=== PATIENT | female | born 1985 | race Caucasian/White ===

== ENCOUNTER 2021-12-16 04:11 | Inpatient (IN) ==
[2021-12-16] MEDS ORDERED: OXYTOCIN 30 UNITS/500 ML BAG IV PRN ×2 (05:21→14:06)
[2021-12-16 06:02] LABS: Hematocrit (blood only) 33.4 % (37-47); Hemoglobin 10.5 g/dL (12.0-16.0); Mean Corpuscular Volume 76.3 fL (80-100); Mean Platelet Volume 10.3 fL (7.4-10.4); Platelet Count 197 K/uL (130-400); RDW Coefficient of Variation 14.6 % (11.5-14.5); RDW Standard Deviation 41.1 fL (36.4-46.3); Red Blood Count 4.38 M/uL (4.2-5.4); White Blood Count 10.39 K/uL (4.8-10.8)
[2021-12-16 06:04] LABS: Mean Corpuscular Hgb Conc 31.4 g/dL (32-36)
--- NOTE | 2021-12-16 07:29 | Labor Progress Brief Note ---
Date of Service December 16, 2021 Subjective Tolerating contractions well, discussing when to get epidural Assessment & Plan (1) SROM (spontaneous rupture of membranes): Plan: SROM followed by onset of labor Patient desires to ambulate intermittently Considering epidural No current need for augmentation; observe, anticipate . Admission and Anticipated Discharge Date Admission Date: December 16, 2021 Physical Exam Genitourinary: /-1 LOF clear FHT Cat 1 [place] Q2-4 Results & Data ([facility]) Vital Signs (Past 12 Hours) Vital Signs Temp Pulse Resp BP 12/16/21 07:05 98.4 F 20 12/16/21 07:02 92 H 138/87 12/16/21 04:29 98.1 F 85 18 134/77 Coding Level of Care Code None Diagnoses SROM (spontaneous rupture of membranes)
[2021-12-16] MEDS ORDERED: SODIUM CHLORIDE 0.9% INJ 10 ML VIAL ONE (07:46)
[2021-12-16] MEDS ORDERED: ePHEDrine sulfate 50 MG/ML AMP ONE (07:46)
[2021-12-16] MEDS ORDERED: BUPIVACAINE 0.25% 30 ML VIAL ONE (07:47)
[2021-12-16] MEDS ORDERED: fentaNYL citrate 100 MCG/2 ML VIAL ONE (07:47)
[2021-12-16] MEDS ORDERED: fentaNYL 2MCG/ML ROPIVACAINE 1.25MG/ML 100 ML BAG EPI ONE (07:48)
[2021-12-16] MEDS: LACTATED RINGER'S 1,000 ML IV PRN ×2 (07:58→08:53)
[2021-12-16] MEDS ORDERED: NALOXONE HCL 0.4 MG/1 ML VIAL/CARP IV PRN (08:16)
[2021-12-16] MEDS ORDERED: NALBUPHINE HCL INJ 10 MG/ML AMP IV PRN (08:16)
[2021-12-16] MEDS ORDERED: ePHEDrine sulfate 50 MG/ML AMP IV PRN (08:16)
[2021-12-16] MEDS ORDERED: diphenhydrAMINE 50 MG/ML VIAL IV PRN (08:16)
[2021-12-16] MEDS ORDERED: ONDANSETRON INJ 2 MG/ML 2 ML VIAL IV PRN (08:16)
[2021-12-16] MEDS ORDERED: fentaNYL 2MCG/ML ROPIVACAINE 1.25MG/ML 100 ML BAG EPI PRN (08:16)
[2021-12-16] MEDS ORDERED: NALOXONE HCL 1 MG in SODIUM CHLORIDE 0.9% 1000ML 1,000 ML IV PRN (08:16)
--- NOTE | 2021-12-16 08:22 | Anesthesiology Consultation ---
Date of Service December 16, 2021 Assessment & Plan Chart Review Chart Review: Patient NOT seen in Pre Admission Testing and Acceptable Risk for Labor Epidural Consults Requested none ASA ASA2 Proposed Anesthesia Anesthesia Type: Labor Epidural and CSE Risk / Benefits Reviewed With: PT / POA / Parent / Guardian, Accepts Plan and Informed Consent Obtained History Height/Weight Height: 5 ft 5 in Weight: 97.976 kg Allergies Allergy/AdvReac Type Severity Reaction Status Date / Time No Known Drug Allergies Allergy Unknown Verified 12/14/21 02:43 Medications Home Medications Medication Instructions Recorded Confirmed Last Taken [id number] fum-folic [id number] 1 tab PO DAILY 11/06/19 12/14/21 12/13/21 08:00 [Daily ] Active Medications Generic Name Dose Route Start Last Admin Trade Name Freq PRN Reason Stop Dose Admin Lactated Ringer's 1,000 mls @ 125 mls/hr 12/16/21 05:21 12/16/21 07:58 Lr IV 12/18/21 05:20 999 mls/hr .Q8H PRN Administration L&D Protocol Protocol NPO Date Last Intake of Fluids: 12/16/21 Time Last Intake of Fluids: 07:00 Date Last Intake of Solids: 12/15/21 Time Last Intake of Solids: 19:00 Past Medical History Medical History FHx: heart disease History of ovarian cyst No significant past medical history Obesity Exercise / Class Metabolic Activity II 4-5 Yardwork/Stairs/Walk up hill Past Family History Family History Father Heart disease Denies family history of Ovarian cancer Breast cancer Colorectal cancer Past Surgical History Surgical History History of ovarian cystectomy left Past Anesthesia History No Hx of Anesthesia Complications and No Family Hx of Anesthesia Complications History of PONV No Hx of PONV and No Hx of Motion Sickness Social History Smoking Status: Never smoker Do You Dip or Chew Tobacco: No Hx Alcohol Use: No Hx Substance Use: No Review of Systems no chest pain or sob Physical Exam Vital Signs Last Vital Signs Temp 36.9 C 12/16/21 07:05 Pulse 72 12/16/21 08:17 Resp 20 12/16/21 07:05 BP 138/87 12/16/21 07:02 Pulse Ox 97 12/16/21 08:17 ENMT Mouth: no TMJ abnormality Thyromental Distance: > or= 3.5 Finger Breadths Mallampati Class: II Neck normal visual inspection Respiratory normal respiratory effort Auscultation: lungs clear to auscultation bilaterally Cardiovascular Rate/Rhythm: regular rate and regular rhythm Musculoskeletal Spine: normal cervical ROM Neurologic moves all extremities Psychiatric Orientation: alert and oriented x 3 Testing Laboratory Results 12/16/21 05:41 Blood Type Cancelled 12/16/21 05:41 Blood Type O Positive 12/16/21 05:41 Antibody Screen Cancelled 12/16/21 05:41 Antibody Screen NEGATIVE 12/16/21 05:41
[2021-12-16] MEDS ORDERED: METHYLERGONOVINE MALEATE 0.2 MG/ML AMP ONE (13:50)
--- NOTE | 2021-12-16 13:58 | Delivery Summary ---
Vaginal Delivery Summary Date of Service December 16, 2021 Vaginal Delivery Summary [facility] Vaginal Delivery Summary: Pre-delivery diagnoses: 36yo @ 38 6/7, spontaneous labor, AMA Post-delivery diagnoses: same Procedure: spontaneous vaginal delivery Surgeon: Alie Jones DO Complications: none Findings: Viable female . Apgars: 8/9. Weight pending, please see nursery records Estimated blood loss: 400ml Description of delivery: The patient presented in labor with SROM and progressed to complete with epidural anesthesia. She then began to push. She spontaneously vaginally delivered a viable from the cephalic presentation. The head delivered in NEHEMIAS position. Nuchal cord x 1, easily reduced. The anterior shoulder delivered, followed by the posterior shoulder, followed by the body. The baby was placed on mother's abdomen and a spontaneous cry was heard. Delayed cord clamping was employed, and the cord was doubly clamped and cut. Cord blood was obtained. The placenta was delivered spontaneously intact with a 3-vessel cord. The uterus and vagina were swept of clots and debris. IV pitocin was given. The uterus became firm. The cervix, vagina, and perineum were inspected and no lacerations were noted. Excellent hemostasis was observed. The mother and baby are recovering in stable and good condition in the room. Sponge and instrument counts were correct x 2. Alie Jones DO [facility] Vaginal Delivery Charge Vaginal Delivery Codes: 90290 global code for the antepartum, delivery, and post- Delivery Type Details: [facility]
[2021-12-16] MEDS ORDERED: BENZOCAINE 20% AER SPR 82.5 GM CAN EXT PRN (14:06)
[2021-12-16] MEDS ORDERED: DIPHTHERIA/TETANUS/PERTUSSIS 0.5 ML SYR/VIAL IM ONE (14:06)
[2021-12-16] MEDS ORDERED: bisacodyL 10 MG SUPP PR PRN (14:06)
[2021-12-16] MEDS ORDERED: IBUPROFEN 600 MG TAB PO PRN (14:06)
[2021-12-16] MEDS ORDERED: oxyCODONE/ACETAMINOPHEN 5mg/325mg TAB PO PRN (14:06)
[2021-12-16] MEDS ORDERED: HYDROCORTISONE ACETATE 25 MG SUPP PR PRN (14:06)
--- NOTE | 2021-12-16 14:50 | Anesthesia Procedure Note ---
Date of Service December 16, 2021 Anesthesia Post Epidural Note Vital Signs Vital Signs: Temp Pulse Resp BP Pulse Ox 36.8 C 78 18 148/71 H 96 12/16/21 11:22 12/16/21 14:43 12/16/21 14:15 12/16/21 14:43 12/16/21 13:52 Notes Mental Status: alert / awake / arousable and participated in evaluation Nausea / Vomiting: adequately controlled Pain: adequately controlled Airway Patency, RR, SpO2: stable & adequate BP & HR: stable & adequate Hydration State: stable & adequate Neuraxial Anesthesia: was administered and sensory block is resolving Anesthetic Complications: no major complications apparent and Pt Satisfied with anesthetic care Epidural: Removed without complications and With tip intact
[2021-12-16] MEDS: ACETAMINOPHEN 325 MG TAB PO PRN ×2 (17:05→23:51)
[2021-12-16] MEDS: DOCUSATE SODIUM 100 MG CAP PO SCH (21:36)
[2021-12-17 06:41] LABS: Hematocrit (blood only) 31.5 % (37-47); Hemoglobin 10.1 g/dL (12.0-16.0)
[2021-12-17] MEDS ORDERED: PRENATAL VITAMIN 1 TAB PO SCH (08:00)
[2021-12-17] MEDS: DOCUSATE SODIUM 100 MG CAP PO SCH (08:31)
[2021-12-17] MEDS: ACETAMINOPHEN 325 MG TAB PO PRN (08:31)
--- NOTE | 2021-12-17 08:35 | Obstetrical Progress Note ---
Date of Service December 17, 2021 Assessment & Plan (1) Supervision of elderly multigravida: PPD#1 doing well, desires discharge home. Reviewed instructions, questions answered. Followup 6w PP. Subjective Ambulation: ambulating normally Voiding: no voiding problems Diet Tolerance:: regular diet Lochia:: Moderate Review of Systems All systems reviewed & are unremarkable except as noted in HPI & below Physical Exam Constitutional WD/WN, vitals as above no acute distress Respiratory normal respiratory effort Cardiovascular Rate/Rhythm: regular rate and regular rhythm Gastrointestinal (Abdomen) Inspection/Auscultation: abdomen normal to inspection; abdomen not distended Percussion/Palpation: abdomen soft Genitourinary OB Exam Abdomen: + fundal height Fundus: + firm; not tender Results & Data ([facility]) Vital Signs (Past 12 Hours) Vital Signs Temp Pulse Pulse Resp BP BP Pulse Ox 12/17/21 07:56 36.7 C 84 16 137/93 12/17/21 03:50 36.7 C 70 18 127/92 12/16/21 23:12 36.8 C 69 16 125/79 94 12/16/21 20:00 36.7 C 79 18 138/90
[2021-12-17] MEDS ORDERED: bisacodyL 5 MG TABEC PO SCH (20:00)
== END 2021-12-17 15:13 | disposition home or self-care (01) | DRG 807 ==
LOC: OPB 04:11 → 4S1 04:14 → 4S2 16:30